=== PATIENT | female | born 1950 ===

== ENCOUNTER 2021-12-13 16:23 | Inpatient (IN) ==
[2021-12-13] MEDS ORDERED: ONDANSETRON 4 MG/2 ML VIAL IV PRN (19:56)
[2021-12-13] MEDS ORDERED: GLUCAGON 1 MG VIAL IM PRN (19:56)
[2021-12-13] MEDS ORDERED: ACETAMINOPHEN 325 MG TABLET PO PRN (19:56)
[2021-12-13] MEDS ORDERED: DEXTROSE 10% 250 ML BAG IV PRN (20:47)
[2021-12-13 20:57] LABS: Basophils # 0.1 10*3/uL (0.0-0.2); Basophils % 0.6 % (0.0-0.8); Eosinophils # 0.1 10*3/uL (0.0-0.87); Eosinophils % 0.5 % (0.00-10.9); Hemoglobin 13.6 GM/DL (12.0-16.0); Immature Granulocytes % 0.6 %; Immature Granulocytes Absolute 0.07 #; Lymphocytes % 15.7 % (21.3-54.2); Mean Corpuscular Volume 83.5 FL (87-102); Mean Platelet Volume 9.6 FL (9.6-12.0); Monocytes % 8.1 % (1.7-12.7); Neutrophils % 74.5 % (38.7-73.9); Platelet Count 471 T/CUMM (130-400); Red Blood Count 4.79 MC/CUMM (3.8-5.5); Red Cell Distribution Width 13.1 % (9.3-17.3); White Blood Count 12.5 T/CUMM (4-12)
[2021-12-13] MEDS ORDERED: ENOXAPARIN 40 MG/0.4 ML SYRINGE SUBCUT SCH (21:00)
[2021-12-13 21:19] LABS: Alanine Aminotransferase 17 U/L (13-56); Albumin 2.3 G/DL (3.4-5.0); Alkaline Phosphatase 99 U/L (45-117); Aspartate Amino Transferase 11 U/L (0-37); Bilirubin,Total < 0.39 MG/DL (0.20-1.00); Blood Urea Nitrogen 10 MG/DL (7-18); Calcium 8.7 MG/DL (8.5-10.1); Carbon Dioxide 27 MMOL/L (21-32); Estimated Glom Filtration Rate 69 ML/MIN; Glucose 216 MG/DL (74-106); Osmolality,Calculated 284.4 MOS/KG (273-304); Potassium 3.1 MMOL/L (3.5-5.1); Sodium 140 MMOL/L (136-145); Total Protein 7.4 G/DL (6.4-8.2)
[2021-12-13] MEDS: carvediloL 25 MG TABLET PO SCH (22:41)
[2021-12-13] MEDS: CIPROFLOXACIN 500 MG TABLET PO SCH (22:41)
[2021-12-13] MEDS: INSULIN REGULAR 100 UNIT/ML SUBCUT SCH (22:41)
[2021-12-13] MEDS: LACTATED RINGERS 1,000 ML IV SCH (22:42)
[2021-12-13] MEDS: VANCOMYCIN INJ 1,000 MG in SODIUM CHLORIDE 0.9% 250 ML IV SCH (22:42)
[2021-12-14 05:07] LABS: Basophils # 0.1 10*3/uL (0.0-0.2); Basophils % 0.4 % (0.0-0.8); Eosinophils % 0.3 % (0.00-10.9); Hemoglobin 12.4 GM/DL (12.0-16.0); Immature Granulocytes % 0.5 %; Immature Granulocytes Absolute 0.06 #; Lymphocytes # 1.7 10*3/uL (1.4-4.0); Lymphocytes % 14.3 % (21.3-54.2); Mean Corpuscular HGB Conc 33.5 GM/DL (32-36); Mean Corpuscular Volume 83.5 FL (87-102); Mean Platelet Volume 9.8 FL (9.6-12.0); Monocytes % 6.7 % (1.7-12.7); Neutrophils % 77.8 % (38.7-73.9); Platelet Count 416 T/CUMM (130-400); Red Blood Count 4.43 MC/CUMM (3.8-5.5); Red Cell Distribution Width 13.1 % (9.3-17.3); White Blood Count 11.9 T/CUMM (4-12)
[2021-12-14 05:37] LABS: Osmolality,Calculated 286.3 MOS/KG (273-304)
[2021-12-14] MEDS ORDERED: MAGNESIUM SULF RIDER 4 GM/100 ML PREMIX IV PRN (06:15)
[2021-12-14] MEDS ORDERED: MAGNESIUM SULF RIDER 2 GM/50 ML PREMIX IV PRN (06:15)
[2021-12-14] MEDS ORDERED: POTASSIUM CHLORIDE 20 MEQ TABLET PO PRN (06:15)
[2021-12-14] MEDS: POTASSIUM CHLORIDE RIDER 10 MEQ/100 ML PREMIX IV PRN ×5 (06:56→18:31)
[2021-12-14] MEDS: CIPROFLOXACIN 500 MG TABLET PO SCH ×2 (09:24→21:10)
[2021-12-14] MEDS: carvediloL 25 MG TABLET PO SCH ×2 (09:24→21:10)
[2021-12-14] MEDS: PANTOPRAZOLE 40 MG TABLET PO SCH (09:25)
[2021-12-14] MEDS: amLODIPine 10 MG TABLET PO SCH (09:25)
[2021-12-14] MEDS: INSULIN REGULAR 100 UNIT/ML SUBCUT SCH ×4 (09:25→21:12)
[2021-12-14] MEDS ORDERED: MORPHINE 2 MG/1 ML SYRINGE IV PRN ×2 (09:51)
[2021-12-14] MEDS: VANCOMYCIN INJ 1,000 MG in SODIUM CHLORIDE 0.9% 250 ML IV SCH ×2 (10:54→21:12)
[2021-12-14] MEDS: LACTATED RINGERS 1,000 ML IV SCH ×2 (13:04→18:31)
[2021-12-14] MEDS ORDERED: LIDOCAINE 2% 5 ML VIAL ONE (15:49)
[2021-12-14] MEDS ORDERED: propofoL 200 MG/20 ML VIAL IV ONE (15:49)
[2021-12-14] MEDS ORDERED: ONDANSETRON 4 MG/2 ML VIAL ONE (15:49)
[2021-12-14] MEDS ORDERED: SEVOFLURANE 1 UNIT/15 MINUTE INH ONE (15:49)
[2021-12-14] MEDS ORDERED: fentaNYL 100 MCG/2 ML VIAL ONE (15:49)
[2021-12-14] MEDS ORDERED: DEXAMETHASONE 4 MG/1 ML VIAL ONE (16:29)
[2021-12-15 05:37] LABS: Basophils % 0.2 % (0.0-0.8); Hematocrit 37.7 VOL% (35.7-47.0); Hemoglobin 12.5 GM/DL (12.0-16.0); Immature Granulocytes % 0.7 %; Immature Granulocytes Absolute 0.08 #; Lymphocytes # 1.3 10*3/uL (1.4-4.0); Lymphocytes % 12.2 % (21.3-54.2); Mean Corpuscular HGB Conc 33.2 GM/DL (32-36); Mean Corpuscular Volume 84.7 FL (87-102); Mean Platelet Volume 9.8 FL (9.6-12.0); Monocytes % 4.9 % (1.7-12.7); Platelet Count 474 T/CUMM (130-400); Red Blood Count 4.45 MC/CUMM (3.8-5.5); Red Cell Distribution Width 13.2 % (9.3-17.3)
[2021-12-15 05:56] LABS: Calcium 9.5 MG/DL (8.5-10.1); Osmolality,Calculated 284.7 MOS/KG (273-304)
[2021-12-15] MEDS: CIPROFLOXACIN 500 MG TABLET PO SCH (08:50)
[2021-12-15] MEDS: carvediloL 25 MG TABLET PO SCH (08:53)
[2021-12-15] MEDS: PANTOPRAZOLE 40 MG TABLET PO SCH (08:53)
[2021-12-15] MEDS: amLODIPine 10 MG TABLET PO SCH (08:53)
[2021-12-15] MEDS: VANCOMYCIN INJ 1,000 MG in SODIUM CHLORIDE 0.9% 250 ML IV SCH (08:54)
[2021-12-15] MEDS: INSULIN REGULAR 100 UNIT/ML SUBCUT SCH ×2 (08:54→12:24)
[2021-12-15] MEDS: LACTATED RINGERS 1,000 ML IV SCH ×3 (09:00→13:44)
[2021-12-15] MEDS ORDERED: SODIUM HYPOCHLORITE 0.25% IRRIG 473 ML BOTTLE TOP SCH (10:07)
[2021-12-15 11:45] VITALS: BP 166/96
== END 2021-12-15 14:01 | disposition home health service (06) | DRG 623 ==
LOC: N.5E 18:56 → SUATTDRO 18:56
PROVIDERS: ADMIT Internal Medicine; ATTEND Internal Medicine